=== PATIENT | female | born 2000 | race American Indian/Alaskan Native ===

== ENCOUNTER 2019-01-15 14:54 | Emergency (ER) | payer MEDICAID ==
--- NOTE | 2019-01-15 16:22 | Emergency Department Report ---
Chief Complaint: Headache Stated Complaint: STOMACH PAIN - HPI History of Present Illness: 18 y o female presents cc of headache x 2 days pt states she had no injuries nor did she sustain any fall. He describes headache as throbbing in nature aching localized to frontal and temporal region. Patient states that this feels like a migraine headache which she gets sometimes. She denies nausea, vomiting, blurred vision she is also requesting a test LMP:12/21/2018 - ROS Review of Systems: As noted in HPI, all systems reviewed and negative - Exam Physical Exam: Gen.: Alert and oriented 3. Patient on the neurological deficit. HEAD: Atraumatic, nontender to palpation. MSE screening note: Focused history and physical exam performed. Due to findings the following was ordered: ED Medical Decision Making - Medical Decision Making 18-year-old female presents with headache and wanted a test. I discussed outpatient this is a nonmedical emergency and is to follow-up with her primary care physician for test and management for headache. Vital signs are normal patient is in no acute distress she has no neurological deficit. ED Disposition for MSE Clinical Impression: Headache, Physically well but worried Disposition: Z-07 MED SCREENING EXAM-LEFT Is pt being admited?: No Does the pt Need Aspirin: No Condition: Stable Instructions: Migraine Headache (ED), Acute Headache (ED) Additional Instructions: take tylenol for headache Referrals: [facility] [Provider Group] - 3-5 Days [facility] [Outside] - 3-5 Days [facility] [Outside] - 3-5 Days Forms: Work/School Release Form(ED) Time of Disposition: 16:16
== END 2019-01-15 17:00 | disposition left against medical advice (07) ==
LOC: ED 14:54
DX: R51 Headache (principal); Z71.1 Person with feared health complaint in whom no diagnosis is made
CPT/HCPCS: 99281